=== PATIENT | female | born 1970 | race Two or more races ===

== ENCOUNTER 2021-07-18 05:44 | Day surgery (SDC) | payer OTHER ==
[~2021-07-18 05:44] MED LIST: GABAPENTIN400 MG PO; SYNTHROID50 MCG PO
== END 2021-07-18 13:18 | disposition home or self-care (01) ==
LOC: CIR.AMB 05:44 → EDSTATUS 12:00 → CIR.AMB 12:00 → SURH 12:00 → CIR.AMB 13:18
PROVIDERS: ATTEND Surgery Surgery of the Hand
DX: M65.841 Other synovitis and tenosynovitis, right hand (principal)

== ENCOUNTER 2023-01-09 12:18 | Emergency (ER) | payer OTHER ==
[~2023-01-09] VITALS: Ht 170.2 cm; Wt 99.8 kg
== END 2023-01-09 13:43 | disposition home or self-care (01) ==
LOC: ER 12:18
DX: H11.89 Other specified disorders of conjunctiva (principal)